=== PATIENT | male | born 1980 | race African-American/Black ===

== ENCOUNTER 2023-03-28 08:47 | Emergency (ER) | payer MEDICAID ==
[~2023-03-28] VITALS: Ht 185.4 cm; Wt 82.0 kg
[2023-03-28 08:51] VITALS: BP 140/80; PULSE 88; RESP 18; TEMP 98.1; O2SAT 100
== END 2023-03-28 10:45 | disposition left against medical advice (07) ==
LOC: ER 08:56
DX: M79.642 Pain in left hand (principal); M79.641 Pain in right hand; F15.90 Other stimulant use, unspecified, uncomplicated
CPT/HCPCS: 99283

== ENCOUNTER 2024-08-10 23:17 | Emergency (ER) | payer MEDICAID, OTHER ==
[~2024-08-10] VITALS: Ht 172.7 cm; Wt 76.0 kg
[2024-08-10 23:35] VITALS: TEMP 37; O2SAT 99
[2024-08-11] MEDS: BACITRACIN ZINC OINT UDPKT TOP ONE (01:48)
[2024-08-11 05:00] VITALS: BP 114/64; PULSE 103; RESP 12; O2SAT 100
== END 2024-08-11 05:03 | disposition home or self-care (01) ==
LOC: ER 23:17
DX: S01.112A Laceration without foreign body of left eyelid and periocular area, initial encounter (principal); F15.10 Other stimulant abuse, uncomplicated; F41.9 Anxiety disorder, unspecified; I10 Essential (primary) hypertension; W18.30XA Fall on same level, unspecified, initial encounter; Y93.89 Activity, other specified; Y92.89 Other specified places as the place of occurrence of the external cause; Y99.8 Other external cause status
CPT/HCPCS: 12013; 99282

== ENCOUNTER 2024-08-20 11:01 | Emergency (ER) | payer MEDICAID ==
[~2024-08-20] VITALS: Ht 182.9 cm; Wt 95.0 kg
[2024-08-20 11:06] VITALS: O2SAT 96
[2024-08-20] MEDS ORDERED: AMOX1TAB16 MT (13:12)
[2024-08-20] MEDS ORDERED: SULF1TAB48 MT (13:12)
[2024-08-20 14:41] VITALS: BP 136/69; PULSE 104; RESP 18; TEMP 37; O2SAT 96
== END 2024-08-20 14:59 | disposition home or self-care (01) ==
LOC: ER 11:01
DX: S09.8XXA Other specified injuries of head, initial encounter (principal); S00.83XA Contusion of other part of head, initial encounter; F10.90 Alcohol use, unspecified, uncomplicated; I10 Essential (primary) hypertension; W01.0XXA Fall on same level from slipping, tripping and stumbling without subsequent striking against object, initial encounter; Y93.89 Activity, other specified; Y92.89 Other specified places as the place of occurrence of the external cause; Y99.8 Other external cause status; Y90.9 Presence of alcohol in blood, level not specified
CPT/HCPCS: 70486; 99284

== ENCOUNTER 2025-03-26 09:55 | Emergency (ER) | payer OTHER ==
[~2025-03-26] VITALS: Ht 188 cm; Wt 78.0 kg
[~2025-03-26 09:55] MED LIST: AMOX1TAB16 MT; SULF1TAB48 MT
[2025-03-26 10:20] VITALS: O2SAT 99
[2025-03-26] MEDS: IBUPROFEN 400MG TABLET PO ONE (11:35)
[2025-03-26] MEDS ORDERED: IBUP-2028 MT (12:15)
[2025-03-26 12:22] VITALS: BP 130/82; PULSE 78; RESP 16; TEMP 36.7; O2SAT 99
== END 2025-03-26 12:40 | disposition home or self-care (01) ==
LOC: ER 10:48
DX: M25.572 Pain in left ankle and joints of left foot (principal); M25.571 Pain in right ankle and joints of right foot; M79.673 Pain in unspecified foot; I10 Essential (primary) hypertension; I67.82 Cerebral ischemia; Z96.659 Presence of unspecified artificial knee joint
CPT/HCPCS: 73610; 99283